=== PATIENT | male | born 1980 | race African-American/Black ===

== ENCOUNTER 2023-08-05 10:27 | Emergency (ER) | payer MEDICAID, OTHER ==
[2023-08-05 10:56] LABS: BASOPHILS ABSOLUTE AUTO 0.04 K/uL (0.00-0.20); EOSINOPHILS ABSOLUTE AUTO 0.04 K/uL (0.00-0.45); HEMATOCRIT 46.4 % (42.0-52.0); HEMOGLOBIN 15.7 g/dL (14.0-18.0); IMMATURE GRAN ABSOLUTE AUTO 0.01 K/uL (0.00-0.05); IMMATURE GRAN PERCENT AUTO 0.2 % (0.0-0.4); LYMPHOCYTES PERCENT AUTO 37.3 % (24.0-44.0); MEAN CORPUSCULAR HEMOGLOBIN 28.9 pg (28.0-32.0); MEAN CORPUSCULAR HGB CONC 33.8 g/dL (32.0-36.0); MEAN CORPUSCULAR VOLUME 85.3 fL (83.0-99.0); MEAN PLATELET VOLUME 11.9 fL (9.4-12.4); MONOCYTES ABSOLUTE AUTO 0.39 K/uL (0.00-0.80); MONOCYTES PERCENT AUTO 9.7 % (0.0-8.0); NEUTROPHILS ABSOLUTE AUTO 2.04 K/uL (1.80-7.70); NEUTROPHILS PERCENT AUTO 50.8 % (41.0-71.0); PLATELET COUNT,PLT 259 K/uL (150-400); RED BLOOD CELL COUNT 5.44 M/uL (4.52-5.90); WHITE BLOOD CELL COUNT,WBC 4.02 K/uL (3.9-11.3)
[2023-08-05] MEDS: Sodium Chloride 0.9% 10 ML Syringe FLUSH PRN (11:03)
[2023-08-05] MEDS: Sodium Chloride 0.9% 2.5 ML Syringe FLUSH PRN (11:03)
[2023-08-05 11:23] LABS: INR 1.04 (0.86-1.11)
[2023-08-05] MEDS: Metoprolol Tartrate 25 MG Tab PO STA (11:42)
[2023-08-05 11:50] LABS: TSH ULTRASENSITIVE 1.23 uIU/mL (0.36-3.74)
[2023-08-05 12:34] LABS: A/G RATIO 0.9 (0.9-1.6); ALBUMIN 3.7 g/dL (3.4-5.0); BILIRUBIN TOTAL 0.4 mg/dL (0.2-1.0); CALCIUM 9.1 mg/dL (8.5-10.1); CARBON DIOXIDE,CO2 25.4 mmol/L (21.0-32.0); EST CRCL DRUG DOSING (CG) 95.25 mL/min; POTASSIUM,K 3.7 mmol/L (3.5-5.1); PROTEIN TOTAL,TP 7.6 g/dL (6.4-8.2)
== END 2023-08-05 13:49 | disposition home or self-care (01) ==
LOC: MW.ED 10:27
DX: I48.91 Unspecified atrial fibrillation (principal)
CPT/HCPCS: 36415; 71046; 80053; 83690; 83735; 84443; 84484; 85025; 85610; 99285; A9270; J3490; 93010; 99283